=== PATIENT | male | born 1960 | race Asian ===

== ENCOUNTER 2019-06-01 09:10 | Emergency (ER) | payer OTHER ==
[~2019-06-01] VITALS: Ht 177.8 cm; Wt 69.0 kg
[2019-06-01] MEDS ORDERED: MORPHINE SULFATE 4 MG/ML CPJ (NOT FOR IM USE) IV STA (09:55)
[2019-06-01 10:29] LABS: BASOPHILS % 0.3 % (0.0-2.0); EOSINOPHILS % 0.4 % (0.0-5.0); HEMATOCRIT. 44.8 % (42.0-52.0); HEMOGLOBIN. 15.2 g/dL (14.0-18.0); LYMPHOCYTES % 10.3 % (20.0-50.0); MEAN CORPUSCULAR HEMOGLOBIN 30.6 pg (28.0-32.0); MEAN CORPUSCULAR VOLUME 90.5 fL (80.0-94.0); MEAN PLATELET VOLUME 9.1 fl (7.4-10.4); MONOCYTES % 7.8 % (2.0-8.0); NEUTROPHILS % 81.2 % (40.0-76.0); PLATELET 181 x1000/uL (130-400); RED BLOOD CELL COUNT 4.96 mill/uL (4.7-6.1); RED CELL DISTRIBUTION WIDTH 14.4 % (11.6-14.6)
[2019-06-01 10:33] LABS: CHLORIDE 108 mEq/L (98-107)
[2019-06-01] MEDS ORDERED: MORPHINE SULFATE 4 MG/ML CPJ (NOT FOR IM USE) IV ONE ×3 (12:00→15:00)
[2019-06-01] MEDS ORDERED: ESMOLOL 2500MG PREMIX 250 ML IV ONE ×2 (12:15→12:30)
[2019-06-01] MEDS ORDERED: NICARDIPINE 50 MG in SODIUM CHLORIDE 0.9% 230 ML IV STA (12:19)
[2019-06-01] MEDS ORDERED: NICARDIPINE 40MG/200ML PREMIX 200 ML IV SCH (12:30)
[2019-06-01] MEDS ORDERED: IOHEXOL-350 100 ML BOTTLE ONE (14:59)
[2019-06-01] MEDS ORDERED: ASPI-1393 MT (15:36)
[2019-06-01] MEDS ORDERED: CLOP75TA33 MT (15:36)
[2019-06-01] MEDS ORDERED: ONDANSETRON HCL 4MG/2ML INJ IV ONE ×2 (15:45→17:45)
[2019-06-01 17:00] VITALS: BP 94/68
[2019-06-01] MEDS ORDERED: ONDANSETRON HCL 4MG/2ML INJ ONE (17:44)
== END 2019-06-01 17:50 ==
LOC: ER 09:55 → CANBEDREQ 19:50
DX: I71.01 Dissection of thoracic aorta (principal); M79.605 Pain in left leg; M79.604 Pain in right leg; M54.5 Low back pain; R07.9 Chest pain, unspecified; I25.2 Old myocardial infarction; R06.82 Tachypnea, not elsewhere classified; F17.200 Nicotine dependence, unspecified, uncomplicated; Z95.5 Presence of coronary angioplasty implant and graft; Z98.890 Other specified postprocedural states; Z79.82 Long term (current) use of aspirin; Z79.899 Other long term (current) drug therapy
CPT/HCPCS: 36415; 71045; 71275; 80053; 83880; 84484; 85025; 93005; 96365; 96366; 96368; 96375; 96376; 99284; J2270; J2405; J3490; J7050; Q9967; Z7610